=== PATIENT | female | born 2000 | race American Indian/Alaskan Native ===

== ENCOUNTER 2020-11-06 10:08 | Emergency (ER) | payer BC ==
[2020-11-06 10:17] VITALS: BP 117/69
--- NOTE | 2020-11-06 10:30 | Emergency Department Report ---
ED ENT HPI - General Chief complaint: Sore Throat Stated complaint: SORE THROAT Time Seen by Provider: 11/06/20 10:23 Source: patient Mode of arrival: Ambulatory Limitations: No Limitations - History of Present Illness Initial comments: This is a 20-year-old female nontoxic, well nourished in appearance, no acute signs of distress presents to the ED with c/o of sore throat. Patient describes sore throat as swallowing razer blades. Patient denies any fever, chills, headache, stiff neck, nausea, vomiting, chest pain, shortness of breath, numbness or tingling. Patient denies any drooling or hoarseness. Patient denies any allergies or significant past medical history. MD complaint: sore throat -: days(s) Location: throat Severity: mild Severity scale (0 -10): 8 Quality: aching Consistency: constant Improves with: none Worsens with: swallowing Associated Symptoms: pain with swallowing, sore throat. denies: fever, cough, gum swelling, toothache, tinnitus, hearing loss, discharge from ear, rhinorrhea - Related Data Previous Rx's Medication Instructions Recorded Last Taken Type Amoxicillin/K Clav Tab [Augmentin 1 tab PO Q12HR #20 tab 11/06/20 Unknown Rx 875 mg] Naproxen 500 mg PO Q8H PRN #20 tablet 11/06/20 Unknown Rx Nystas/Diphen/Xyl Visc/Mylanta 15 ml MM Q12H PRN 5 Days #1 bottle 11/06/20 Unknown Rx [Magic Mouthwash] Allergies Allergy/AdvReac Type Severity Reaction Status Date / Time antibiotic Allergy Angioedema Uncoded 11/06/20 10:15 ED Dental HPI - General Chief complaint: Sore Throat Stated complaint: SORE THROAT Time Seen by Provider: 11/06/20 10:23 Source: patient Mode of arrival: Ambulatory Limitations: No Limitations - Related Data Previous Rx's Medication Instructions Recorded Last Taken Type Amoxicillin/K Clav Tab [Augmentin 1 tab PO Q12HR #20 tab 11/06/20 Unknown Rx 875 mg] Naproxen 500 mg PO Q8H PRN #20 tablet 11/06/20 Unknown Rx Nystas/Diphen/Xyl Visc/Mylanta 15 ml MM Q12H PRN 5 Days #1 bottle 11/06/20 Unknown Rx [Magic Mouthwash] Allergies Allergy/AdvReac Type Severity Reaction Status Date / Time antibiotic Allergy Angioedema Uncoded 11/06/20 10:15 ED Review of Systems ROS: Stated complaint: SORE THROAT Other details as noted in HPI Comment: All other systems reviewed and negative Constitutional: denies: chills, fever Eyes: denies: eye pain, eye discharge, vision change ENT: throat pain. denies: ear pain Respiratory: denies: cough, shortness of breath, wheezing Cardiovascular: denies: chest pain, palpitations Endocrine: no symptoms reported Gastrointestinal: denies: abdominal pain, nausea, diarrhea Genitourinary: denies: urgency, dysuria, discharge Musculoskeletal: denies: back pain, joint swelling, arthralgia Skin: denies: rash, lesions Neurological: denies: headache, weakness, paresthesias Psychiatric: denies: anxiety, depression Hematological/Lymphatic: denies: easy bleeding, easy bruising ED Past Medical Hx - Past Medical History Previous Medical History?: No - Surgical History Past Surgical History?: No - Social History Smoking Status: Current Every Day Smoker Substance Use Type: Alcohol, Marijuana - Medications Home Medications: Home Medications Medication Instructions Recorded Confirmed Last Taken Type Amoxicillin/K Clav Tab [Augmentin 1 tab PO Q12HR #20 tab 11/06/20 Unknown Rx 875 mg] Naproxen 500 mg PO Q8H PRN #20 tablet 11/06/20 Unknown Rx Nystas/Diphen/Xyl Visc/Mylanta 15 ml MM Q12H PRN 5 Days #1 bottle 11/06/20 Unknown Rx [Magic Mouthwash] ED Physical Exam - General Limitations: No Limitations General appearance: alert, in no apparent distress - Head Head exam: Present: atraumatic, normocephalic - Eye Eye exam: Present: normal appearance - Expanded ENT Exam Expanded Ear exam: Present: normal external inspection Mouth exam: Present: normal external inspection, tongue normal. Absent: drooling, trismus, muffled voice Teeth exam: Present: normal inspection Throat exam: Positive: tonsillar erythema, tonsillomegaly (2+), tonsillar exudate, other (Uvula midline. No tonsillar abscess.). Negative: R peritonsillar mass, L peritonsillar mass - Neck Neck exam: Present: normal inspection, full ROM. Absent: tenderness, meningismus, lymphadenopathy - Respiratory Respiratory exam: Absent: respiratory distress - Extremities Exam Extremities exam: Present: full ROM - Back Exam Back exam: Present: full ROM - Neurological Exam Neurological exam: Present: alert, oriented X3, normal gait - Psychiatric Psychiatric exam: Present: normal affect, normal mood - Skin Skin exam: Present: warm, dry, intact, normal color. Absent: rash ED Course Vital Signs 11/06/20 10:15 Temperature 98.8 F Pulse Rate 110 H Respiratory 18 Rate Blood Pressure 117/69 O2 Sat by Pulse 100 Oximetry - Reevaluation(s) Reevaluation #1: 11/06/20 10:31 Patient is speaking in full sentences with no signs of distress noted. ED Medical Decision Making - Medical Decision Making Patient be treated with Augmentin. Patient is stable and was examined by me. Patient was instructed to follow-up with a primary care doctor in 3-5 days or if symptoms worsen and continue return to emergency room as soon as possible. At time of discharge, the patient does not seem toxic or ill in appearance. No acute signs of distress noted. Patient agrees to discharge treatment plan of care. No further questions noted by the patient. Critical care attestation.: If time is entered above; I have spent that time in minutes in the direct care of this critically ill patient, excluding procedure time. ED Disposition Clinical Impression: Tonsillitis with exudate Disposition: - TO HOME OR SELFCARE Is pt being admited?: No Does the pt Need Aspirin: No Condition: Stable Instructions: Tonsillitis, [id number] Additional Instructions: Follow-up with a primary care doctor in 3-5 days or if symptoms worsen and continue return to emergency room as soon as possible. Prescriptions: Amoxicillin/K Clav Tab [Augmentin 875 mg] 1 tab PO Q12HR #20 tab Nystas/Diphen/Xyl Visc/Mylanta [Magic Mouthwash] 15 ml MM Q12H PRN 5 Days #1 bottle PRN Reason: Sore Throat Naproxen 500 mg PO Q8H PRN #20 tablet PRN Reason: Pain , Severe (7-10) Referrals: PRIMARY MD BEST [Referring] - 3-5 Days ANGELO RUST MD [Staff Physician] - 3-5 Days Forms: Work/School Release Form(ED) Time of Disposition: 10:33
== END 2020-11-06 11:14 | disposition home or self-care (01) ==
LOC: ED 10:08
DX: J03.90 Acute tonsillitis, unspecified (principal); F17.200 Nicotine dependence, unspecified, uncomplicated; F12.10 Cannabis abuse, uncomplicated; Z79.2 Long term (current) use of antibiotics; Z79.899 Other long term (current) drug therapy; Z88.8 Allergy status to other drugs, medicaments and biological substances
CPT/HCPCS: 99282

== ENCOUNTER 2020-11-11 02:36 | Emergency (ER) | payer BC | END 2020-11-11 02:40 | disposition left against medical advice (07) | LOC: ED 02:36 | DX: R11.10 Vomiting, unspecified (principal); Z53.21 Procedure and treatment not carried out due to patient leaving prior to being seen by health care provider ==

== ENCOUNTER 2021-07-12 09:57 | Emergency (ER) | payer BC, OTHER ==
[2021-07-12 10:05] VITALS: BP 124/87
--- NOTE | 2021-07-12 10:55 | XRay Report ---
LEFT FEMUR 2 VIEW(S) INDICATION / CLINICAL INFORMATION: left leg pain, possible foreign body COMPARISON: None available. FINDINGS: BONES / JOINT(S): No acute fracture or subluxation. No significant arthritis. SOFT TISSUES: There is a 0.4 cm irregularly-shaped density involving the anteromedial aspect of the l eft leg, likely foreign body. ADDITIONAL FINDINGS: None. Signer Name: Alec Ford DO Signed: 07/12/2021 10:51 AM Workstation Name: [id number]
--- NOTE | 2021-07-12 11:04 | Emergency Department Report ---
ED Extremity Problem HPI - General Chief complaint: Extremity Injury, Lower Stated complaint: LEFT LEG PAIN Time Seen by Provider: 07/12/21 10:14 Source: EMS Mode of arrival: Wheelchair Limitations: No Limitations - History of Present Illness Initial comments: Patient is a 21-year-old female presents emergency room complaints of left leg pain for approximately 3 months. She states that 1 year ago she had a laceration from window glass and was seen in emergency room 3 days after she did it and was advised there was a foreign body but she never followed back up. She states over the last 3 months she has had pain in the region. She states that she also gets a numbness tingling sensation down her leg. She denies any swelling, redness, skin changes, drainage, fever, chills, vomiting. Past medical history of PTSD, anxiety, depression. No known allergies. Severity scale (0 -10): 9 - Related Data Previous Rx's Medication Instructions Recorded Last Taken Type Amoxicillin/K Clav Tab [Augmentin 1 tab PO Q12HR #20 tab 11/06/20 Unknown Rx 875 mg] Naproxen 500 mg PO Q8H PRN #20 tablet 11/06/20 Unknown Rx Nystas/Diphen/Xyl Visc/Mylanta 15 ml MM Q12H PRN 5 Days #1 bottle 11/06/20 Unknown Rx [Magic Mouthwash] Naproxen 375 mg PO BID PRN #20 tablet 07/12/21 Unknown Rx Allergies Allergy/AdvReac Type Severity Reaction Status Date / Time antibiotic Allergy Angioedema Uncoded 11/06/20 10:15 ED Review of Systems ROS: Stated complaint: LEFT LEG PAIN Other details as noted in HPI Comment: All other systems reviewed and negative ED Past Medical Hx - Past Medical History Previous Medical History?: Yes Hx Psychiatric Treatment: Yes (ptsd, depress/anxiety) - Social History Smoking Status: Current Every Day Smoker Substance Use Type: Alcohol, Marijuana - Medications Home Medications: Home Medications Medication Instructions Recorded Confirmed Last Taken Type Amoxicillin/K Clav Tab [Augmentin 1 tab PO Q12HR #20 tab 11/06/20 Unknown Rx 875 mg] Naproxen 500 mg PO Q8H PRN #20 tablet 11/06/20 Unknown Rx Nystas/Diphen/Xyl Visc/Mylanta 15 ml MM Q12H PRN 5 Days #1 bottle 11/06/20 Unknown Rx [Magic Mouthwash] Naproxen 375 mg PO BID PRN #20 tablet 07/12/21 Unknown Rx ED Physical Exam - General Limitations: No Limitations General appearance: alert, in no apparent distress - Head Head exam: Present: atraumatic, normocephalic - Eye Eye exam: Present: normal appearance - ENT ENT exam: Present: mucous membranes moist - Neurological Exam Neurological exam: Present: alert, oriented X3 - Psychiatric Psychiatric exam: Present: normal affect, normal mood - Skin Skin exam: Present: warm, dry, other (there is a healed scar present to the left anterior medial thigh, no erythema, no induration, no fluctuance, no ttp, FROM ,neurovascularly intact) ED Course Vital Signs 07/12/21 10:04 Temperature 98.7 F Pulse Rate 104 H Respiratory 16 Rate Blood Pressure 124/87 [Left] O2 Sat by Pulse 99 Oximetry ED Medical Decision Making - Radiology Data Radiology results: report reviewed Ordering Physician: CHARITO LUZ Date of Service: 07/12/21 Procedure(s): XR femur 2+V LT Accession Number(s): [id number] cc: CHARITO LUZ Fluoro Time In Minutes: LEFT FEMUR 2 VIEW(S) INDICATION / CLINICAL INFORMATION: left leg pain, possible foreign body COMPARISON: None available. FINDINGS: BONES / JOINT(S): No acute fracture or subluxation. No significant arthritis. SOFT TISSUES: There is a 0.4 cm irregularly-shaped density involving the anteromedial aspect of the left leg, likely foreign body. ADDITIONAL FINDINGS: None. Signer Name: Alec Ford DO Signed: 07/12/2021 10:51 AM Workstation Name: [id number] Transcribed By: DAMIEN Dictated By: ALEC FORD DO Electronically Authenticated By: ALEC FORD DO Signed Date/Time: 07/12/21 1051 DD/ 1050 TD/TT: - Medical Decision Making alvaro is a 21-year-old female presents emergency room complaints of left leg pain for approximately 3 months. She states that 1 year ago she had a laceration from window glass and was seen in emergency room 3 days after she did it and was advised there was a foreign body but she never followed back up. She states over the last 3 months she has had pain in the region. She states that she also gets a numbness tingling sensation down her leg. She denies any swelling, redness, skin changes, drainage, fever, chills, vomiting. Past medical history of PTSD, anxiety, depression. No known allergies. Vitals are stable. On exam:there is a healed scar present to the left anterior medial thigh, no erythema, no induration, no fluctuance, no ttp, FROM ,neurovascularly intact x-ray left femur BONES / JOINT(S): No acute fracture or subluxation. No significant arthritis. SOFT TISSUES: There is a 0.4 cm irregularly-shaped density involving the anteromedial aspect of the left leg, likely foreign body. ADDITIONAL FINDINGS: None. Patient has no clinical signs of cellulitis, abscess or septic joint. Foreign body has been present for 1 year, due to concerns for further damage advised patient she will need to follow-up with outpatient general surgery for removal. Advised patient Please take medication as prescribed as needed for pain. Follow-up with a general surgeon. Return to emergency room for any new or worsening symptoms. Critical care attestation.: If time is entered above; I have spent that time in minutes in the direct care of this critically ill patient, excluding procedure time. ED Disposition Clinical Impression: Foreign body, Left thigh pain Disposition: 01 HOME / SELF CARE / HOMELESS Is pt being admited?: No Does the pt Need Aspirin: No Condition: Stable Instructions: Skin Foreign Body Additional Instructions: Please take medication as prescribed as needed for pain. Follow-up with a general surgeon. Return to emergency room for any new or worsening symptoms. Prescriptions: Naproxen 375 mg PO BID PRN #20 tablet PRN Reason: pain Referrals: SUMMER PATRICK MD [Staff Physician] - 2-3 Days Time of Disposition: 11:03 Print Language: ROMANIAN
== END 2021-07-12 11:40 | disposition home or self-care (01) ==
LOC: ED 09:57
DX: M79.652 Pain in left thigh (principal); M79.5 Residual foreign body in soft tissue; F17.200 Nicotine dependence, unspecified, uncomplicated; F12.90 Cannabis use, unspecified, uncomplicated; Z88.1 Allergy status to other antibiotic agents; Z88.8 Allergy status to other drugs, medicaments and biological substances; W45.8XXA Other foreign body or object entering through skin, initial encounter; Y93.89 Activity, other specified; Y92.89 Other specified places as the place of occurrence of the external cause; Y99.8 Other external cause status
CPT/HCPCS: 99283

== ENCOUNTER 2021-07-13 12:10 | Emergency (ER) | payer OTHER ==
[2021-07-13 12:20] VITALS: BP 105/52
--- NOTE | 2021-07-13 12:39 | Emergency Department Report ---
ED Psych HPI - General Chief Complaint: Urogenital-Female Stated Complaint: urogenital Time Seen by Provider: 07/13/21 12:25 Source: patient, EMS Mode of arrival: Ambulatory - History of Present Illness Initial Comments: CC: My uterus hurts. I have been walking all day. I am having suicidal thoughts. HPI: This is a 21 yo female with history of PTSD, depression, anxiety who presents with "suicidal thoughts". She initally informed EMS that she had uterus pain and vaginal bleeding. She told EMS calmly "I forgot to tell them I'm suicidal." During my exam, patient is tearful. She says her car was impounded. She was evicted from hotel. Her family lives in [place]. Charge nurse informed me that patient was actually caught stealing items at at [facility]. Police recommended EMS transport instead of arrest. MD Complaint: suicidal ideation, feels depressed Associated Psychiatric Symptoms: suicidal ideation History of same: Yes Quality: constant Improves With: none Worsens With: none Context: new medication(s) If Self Harm: admits thoughts of - Related Data Previous Rx's Medication Instructions Recorded Last Taken Type Amoxicillin/K Clav Tab [Augmentin 1 tab PO Q12HR #20 tab 11/06/20 Unknown Rx 875 mg] Naproxen 500 mg PO Q8H PRN #20 tablet 11/06/20 Unknown Rx Nystas/Diphen/Xyl Visc/Mylanta 15 ml MM Q12H PRN 5 Days #1 bottle 11/06/20 Unknown Rx [Magic Mouthwash] Naproxen 375 mg PO BID PRN #20 tablet 07/12/21 Unknown Rx Allergies Allergy/AdvReac Type Severity Reaction Status Date / Time escitalopram [From Lexapro] AdvReac Hives Verified 07/13/21 12:17 Sulfa (Sulfonamide AdvReac Hives Verified 07/13/21 12:17 Antibiotics) antibiotic Allergy Angioedema Uncoded 11/06/20 10:15 ED Review of Systems ROS: Stated complaint: urogenital Other details as noted in HPI Comment: All other systems reviewed and negative Constitutional: denies: chills, fever, malaise Respiratory: denies: cough, shortness of breath Cardiovascular: denies: chest pain Gastrointestinal: denies: abdominal pain, nausea, vomiting ED Past Medical Hx - Past Medical History Previous Medical History?: Yes Hx Psychiatric Treatment: Yes (ptsd, depress/anxiety) - Social History Smoking Status: Current Every Day Smoker Substance Use Type: Alcohol, Marijuana - Medications Home Medications: Home Medications Medication Instructions Recorded Confirmed Last Taken Type Amoxicillin/K Clav Tab [Augmentin 1 tab PO Q12HR #20 tab 11/06/20 Unknown Rx 875 mg] Naproxen 500 mg PO Q8H PRN #20 tablet 11/06/20 Unknown Rx Nystas/Diphen/Xyl Visc/Mylanta 15 ml MM Q12H PRN 5 Days #1 bottle 11/06/20 Unknown Rx [Magic Mouthwash] Naproxen 375 mg PO BID PRN #20 tablet 07/12/21 Unknown Rx ED Physical Exam - General Limitations: No Limitations General appearance: alert, in no apparent distress, other (tearful no acute distress) - Head Head exam: Present: atraumatic, normocephalic - Eye Eye exam: Present: normal appearance - ENT ENT exam: Present: mucous membranes moist - Neck Neck exam: Present: normal inspection, full ROM - Respiratory Respiratory exam: Present: normal lung sounds bilaterally. Absent: respiratory distress, wheezes, rales, rhonchi - Cardiovascular Cardiovascular Exam: Present: regular rate, normal rhythm, normal heart sounds. Absent: systolic murmur, diastolic murmur, rubs, gallop - GI/Abdominal GI/Abdominal exam: Present: soft, normal bowel sounds. Absent: distended, tenderness, guarding, rebound - Extremities Exam Extremities exam: Present: normal inspection - Neurological Exam Neurological exam: Present: alert, oriented X3 - Psychiatric Psychiatric exam: Present: depressed - Skin Skin exam: Present: warm, dry, intact, normal color. Absent: rash ED Course Vital Signs 07/13/21 12:15 Temperature 97.8 F Pulse Rate 95 H Respiratory 16 Rate Blood Pressure 105/52 [Right] O2 Sat by Pulse 95 Oximetry ED Medical Decision Making - Lab Data Result diagrams: 07/13/21 13:15 07/13/21 13:15 Laboratory Results - last 24 hr 07/13/21 07/13/21 07/13/21 13:15 13:15 13:15 WBC 3.9 L RBC 4.36 Hgb 11.7 Hct 36.0 MCV 83 MCH 27 L MCHC 32 RDW 15.9 H Plt Count 256 Lymph % (Auto) 27.2 Kimble % (Auto) 8.0 H Eos % (Auto) 1.7 Baso % (Auto) 0.8 Lymph # (Auto) 1.1 L Kimble # (Auto) 0.3 Eos # (Auto) 0.1 Baso # (Auto) 0.0 Seg Neutrophils % 62.3 Seg Neutrophils # 2.5 Sodium 139 Potassium 4.0 Chloride 103.9 Carbon Dioxide 26 Anion Gap 13 BUN 7 Creatinine 0.7 Estimated GFR > 60 BUN/Creatinine Ratio 10 Glucose 93 Calcium 8.7 Total Bilirubin 0.30 AST 28 ALT 29 Alkaline Phosphatase 52 Total Protein 6.9 Albumin 3.9 Albumin/Globulin Ratio 1.3 HCG, Qual Salicylates < 0.3 L Acetaminophen 07/13/21 07/13/21 13:15 13:15 WBC RBC Hgb Hct MCV MCH MCHC RDW Plt Count Lymph % (Auto) Kimble % (Auto) Eos % (Auto) Baso % (Auto) Lymph # (Auto) Kimble # (Auto) Eos # (Auto) Baso # (Auto) Seg Neutrophils % Seg Neutrophils # Sodium Potassium Chloride Carbon Dioxide Anion Gap BUN Creatinine Estimated GFR BUN/Creatinine Ratio Glucose Calcium Total Bilirubin AST ALT Alkaline Phosphatase Total Protein Albumin Albumin/Globulin Ratio HCG, Qual Negative Salicylates Acetaminophen 5.0 L - Medical Decision Making 1. Suicidal ideation: Limited cooperation from patient, She is medically clear for psychiatric care. ACBC chemistry salicylate acetaminophen all within normal limits hCG negative. 2. Dysfunctional uterine bleeding: Suspect dysmenorrhea no evidence of ectopic or severe anemia. I truly appreciate assessment provided by mental health team. Mental health solar sales assessor spoke with mother mother gave history of polysubstance abuse especially methamphetamine. Family had arranged for fully paid rehabilitation. Patient has refused to go. Patient has been manipulative with family members for additional morning. Patient will be discharged to self-care. Charge nurse is aware. Patient is exhibiting manipulative behavior. She has not been cooperative. I do not believe that she is at risk for self-harm. Mother states that she does have access to her family. She does not meet criteria for inpatient psychiatric care. Charge nurse provided support long term resources this morning when she was discharged. Critical care attestation.: If time is entered above; I have spent that time in minutes in the direct care of this critically ill patient, excluding procedure time. ED Disposition Clinical Impression: Polysubstance abuse Disposition: HOME / SELF CARE / HOMELESS Is pt being admited?: No Does the pt Need Aspirin: No Condition: Stable
[2021-07-13 13:35] LABS: Basophils % (Auto) 0.8 % (0.0-1.8); Eosinophils # (Auto) 0.1 K/mm3 (0.0-0.4); Eosinophils % (Auto) 1.7 % (0.0-4.3); Hemoglobin 11.7 gm/dl (10.1-14.3); Lymphocytes # (Auto) 1.1 K/mm3 (1.2-5.4); Lymphocytes % (Auto) 27.2 % (13.4-35.0); Mean Corpuscular HGB Conc 32 % (30-34); Mean Corpuscular Volume 83 fl (79-97); Monocytes # (Auto) 0.3 K/mm3 (0.0-0.8); Platelet Count 256 K/mm3 (140-440); Red Blood Count 4.36 M/mm3 (3.65-5.03); Red Cell Distribution Width 15.9 % (13.2-15.2)
[2021-07-13 13:58] LABS: Alanine Aminotransferase 29 units/L (7-56); Albumin 3.9 g/dL (3.9-5); Blood Urea Nitrogen 7 mg/dL (7-17); Calcium 8.7 mg/dL (8.4-10.2); Hemolysis Index 4
[2021-07-13 14:01] LABS: BUN/Creatinine Ratio 10
== END 2021-07-13 16:07 | disposition home or self-care (01) ==
LOC: ED 12:10
DX: F19.10 Other psychoactive substance abuse, uncomplicated (principal); N93.9 Abnormal uterine and vaginal bleeding, unspecified; F17.200 Nicotine dependence, unspecified, uncomplicated; F10.20 Alcohol dependence, uncomplicated; F12.90 Cannabis use, unspecified, uncomplicated; F41.9 Anxiety disorder, unspecified; Z88.0 Allergy status to penicillin; Z88.2 Allergy status to sulfonamides; Z88.8 Allergy status to other drugs, medicaments and biological substances
CPT/HCPCS: 36415; 80053; 80320; 84703; 85025; 99284; G0480